=== PATIENT | male | born 1965 | race Caucasian/White ===

== ENCOUNTER 2018-03-01 11:10 | Emergency (ER) | payer OTHER ==
[~2018-03-01] VITALS: Ht 175.3 cm; Wt 108.9 kg
[2018-03-01 11:45] LABS: ABSOLUTE BASOPHIL COUNT 0 /CUMM (0.0-0.2); ABSOLUTE EOSINOPHIL COUNT 0.1 /CUMM (0.0-0.7); ABSOLUTE GRANULOCYTE CT 2.8 /CUMM (1.4-6.5); ABSOLUTE LYMPH COUNT 2.3 /CUMM (1.2-3.4); ABSOLUTE MONOCYTE COUNT 0.6 /CUMM (0.10-0.60); BASOPHIL % 0.8 % (0.0-2.0); EOSINOPHIL % 1.5 % (0-5); GRANULOCYTE % 48.2 % (42.2-75.2); HEMATOCRIT 43.5 % (42-52); MEAN CORPUSCULAR HGB 34.7 PG (27.0-31.0); MEAN CORPUSCULAR HGB CONC 35.1 G/DL (33.0-37.0); MEAN CORPUSCULAR VOLUME 99.1 FL (80.0-94.0); MEAN PLATELET VOLUME 10.3 FL (7.4-10.4); RBC DISTRIBUTION WIDTH 15.9 % (11.5-14.5); RED BLOOD CELL CT 4.39 /CUMM (4.70-6.10); WHITE BLOOD CELL COUNT 5.9 /CUMM (4.8-10.8)
--- NOTE | 2018-03-01 12:10 | ED GENERAL ADULT ---
History of Present Illness General Chief Complaint: ETOH/Drug Related Complaint Stated Complaint: PT IS HERE FOR DETOX Source: patient Exam Limitations: no limitations Vital Signs & Intake/Output Vital Signs & Intake/Output Vital Signs Date Time Temp Pulse Resp B/P B/P Pulse O2 O2 Flow FiO2 Mean Ox Delivery Rate 03/02 0738 98.3 73 20 149/72 93 Room Air 03/02 0545 98.4 76 18 99/60 03/02 0542 98.4 76 18 99/60 98 Room Air 03/02 0253 163/91 03/02 0239 99.1 90 20 163/91 03/02 0239 99.1 90 20 163/91 96 Room Air Room Air 03/02 0000 98.8 75 20 150/86 03/01 2356 98.8 75 20 150/86 94 Room Air 03/01 2053 98.2 64 18 138/82 03/01 2053 138/82 03/01 2053 98.2 64 18 138/82 97 Room Air 03/01 1828 98.9 64 16 98/52 98 Room Air 03/01 1827 98.9 64 16 98/52 03/01 1716 97.9 66 18 120/55 99 Room Air 03/01 1715 97.9 66 18 120/55 03/01 1558 97.2 70 16 106/56 03/01 1556 97.2 70 18 106/56 97 Room Air 03/01 1412 97.8 65 20 112/65 03/01 1410 97.8 65 112/65 95 Room Air 03/01 1215 96.9 72 18 144/82 03/01 1113 96.9 72 18 144/82 97 Room Air ED Intake and Output 03/02 0000 03/01 1200 Intake Total Output Total Balance Patient 240 lb Weight Weight Reported by Patient Measurement Method Allergies Coded Allergies: No Known Allergies (03/01/18) Reconcile Medications Atenolol 50 MG TABLET 1 TAB PO DAILY HEART (Reported) Clonazepam 1 MG TABLET 1 TAB PO BIDP PRN ANXIETY (Reported) Escitalopram Oxalate (Lexapro) 20 MG TABLET 1 TAB PO DAILY MENTAL HEALTH ( Reported) Levocetirizine Dihydrochloride 5 MG TABLET 1 TAB PO DAILY ALLERGIES (Reported ) Levothyroxine Sodium 200 MCG TABLET 1 TAB PO DAILY AC THYROID (Reported) Lisinopril/Hydrochlorothiazide (Lisinopril-Hctz 20-12.5 MG Tab) 20 MG-12.5 MG TABLET 2 TAB PO DAILY HEART (Reported) Metformin HCl 850 MG TABLET 1 TAB PO BID DIABETES (Reported) Nicotine Polacrilex (Nicotine Lozenge) 4 MG LOZENGE 1 TAB PO DAILY NEEDED PRN SMOKING (Reported) Omeprazole 20 MG CAPSULE. 1 CAP PO DAILY GI (Reported) Pioglitazone HCl 30 MG TABLET 1 TAB PO DAILY DIABETES (Reported) Zolpidem Tartrate (Ambien) 10 MG TABLET 1 TAB PO QPM SLEEP (Reported) Triage Note: 52 Y/O MALE REQUESTING DETOX FROM ALCOHOL. HE HAS BEEN DRINKING 1L DAILY SINCE LAST DETOX 16 WEEKS AGO. WENT TO [place] YESTERDAY BUT WAS TOLD THEY DONT HAVE A DETOX UNIT PER PT STATEMENT. TODAY HAS CONSUMED APPROX 1/2 LITER PER PT. DENIES HX SEIZURES. ADMITS TO GETTING TREMULOUS BUT NO TREMORS NOTED AT PRESENT. ALSO C/O DIFFICULTY SLEEPING X 4 DAYS AND DECREASED APPETITE/PO INTAKE. DENIES SI/HI. CALM AND COOPERATIVE. Triage Nurses Notes Reviewed? yes Onset: Gradual Duration: week(s): Timing: recent history Injury Environment: home HPI: 52-year-old male with history of hypertension, diabetes presents emergency department requesting alcohol detox. Patient states that he has been drinking alcohol daily, he drinks over 1 L of alcohol per day. Patient had several drinks this morning. Patient has gone through detox in the past, last went through detox a few months ago. Patient states that when he goes alcohol withdrawal he has tremors however he denies history of seizures. Patient denies SI/HI, drug use, chest pain, abdominal pain. (Anne Huggins) Past History Travel History Traveled to [place] past 21 day No Medical History Any Pertinent Medical History? see below for history Neurological: NONE EENT: NONE Cardiovascular: hypertension Respiratory: NONE Gastrointestinal: NONE Hepatic: NONE Renal: NONE Musculoskeletal: NONE Psychiatric: NONE Endocrine: diabetes Surgical History Surgical History: non-contributory Psychosocial History What is your primary language Hungarian Tobacco Use: Current Daily Use Daily Tobacco Use Amount/Type: => 5 Cigarettes daily Family History Hx Contributory? No (Anne Huggins) Review of Systems Review of Systems Constitutional: Reports: no symptoms. EENTM: Reports: no symptoms. Respiratory: Reports: no symptoms. Cardiovascular: Reports: no symptoms. GI: Reports: no symptoms. Genitourinary: Reports: no symptoms. Musculoskeletal: Reports: no symptoms. Skin: Reports: no symptoms. Neurological/Psychological: Reports: see HPI. Hematologic/Endocrine: Reports: no symptoms. Immunologic/Allergic: Reports: no symptoms. All Other Systems: Reviewed and Negative (Amita BELLE,Anne Barnes) Physical Exam Physical Exam General Appearance: well developed/nourished, no apparent distress, alert, awake Head: atraumatic, normal appearance Eyes: Bilateral: normal appearance. Ears, Nose, Throat: hearing grossly normal Neck: normal inspection, supple, full range of motion Respiratory: normal breath sounds, no respiratory distress, lungs clear Cardiovascular: regular rate/rhythm Gastrointestinal: normal bowel sounds, soft, non-tender, no organomegaly Back: normal inspection, normal range of motion Extremities: normal inspection, normal range of motion Neurologic/Psych: awake, alert, oriented x 3 Skin: intact, normal color, warm/dry Core Measures ACS in differential dx? No CVA/TIA Diagnosis: No Sepsis Present: No Sepsis Focused Exam Completed? No (Amita BELLE,Anne Barnes) Progress Differential Diagnoses I considered the following diagnoses in my evaluation of the patient: [Alcohol detox, alcohol intoxication, drug abuse, electrolyte abnormality, dehydration, kidney disease] Plan of Care: Orders Procedure Date/time Status Regular Diet 03/01 D Active CIWA 03/01 1128 Active URINE DRUG SCREEN FOR ER ONLY 03/01 1128 Complete ETHANOL 03/01 1128 Complete COMPREHENSIVE METABOLIC PANEL 03/01 1128 Complete CBC WITHOUT DIFFERENTIAL 03/01 112 Complete Laboratory Tests 03/01/18 1141: Urine Opiates Screen < 100, Methadone Screen 57, Barbiturate Screen < 60, Ur Phencyclidine Scrn < 6.00, Amphetamines Screen 177, U Benzodiazepines Scrn 292 H, Urine Cocaine Screen < 50, Urine Cannabis Screen 34.80 03/01/18 1134: Anion Gap 14, Estimated GFR 53 L, BUN/Creatinine Ratio 17.1, Glucose 184 H, Calcium 9.7, Total Bilirubin 1.2, AST 143 H, ALT 127 H, Alkaline Phosphatase 103, Total Protein 7.2, Albumin 4.3, Globulin 2.9, Albumin/Globulin Ratio 1.5, CBC w Diff NO MAN DIFF REQ, RBC 4.39 L, MCV 99.1 H, MCH 34.7 H, MCHC 35.1, RDW 15.9 H, MPV 10.3, Gran % 48.2, Lymphocytes % 39.8, Monocytes % 9.7 H, Eosinophils % 1.5, Basophils % 0.8, Absolute Granulocytes 2.8, Absolute Lymphocytes 2.3, Absolute Monocytes 0.6, Absolute Eosinophils 0.1, Absolute Basophils 0, Serum Alcohol 298.0 Patient's labs show mildly abnormal kidney functions, patient has a history of diabetes and hypertension, no labs to compare these numbers to. These findings are likely related to dehydration from his alcoholism versus kidney disease relating to his chronic conditions. Patient in no acute distress, sleeping soundly and hallway. Alcohol level is almost 300. Patient's CIWA scores have been 0-2 for the duration of his stay thus far. The patient reports he is not interested in outpatient detox. We'll continue to monitor CIWA scores until the patient's alcohol level is 0. PAtient medicated with IV fluids for dehyration and hypotension. The patient was signed out to Dr. Guevara pending further CIWA protocol. Initial ED EKG: none Hand-Off Endorsed To: Samson Guevara MD Endorsed Time: 1999 Pending: other (CIWA) (Anne Huggins) Hand-Off Endorsed To: Aristeo Rush DO Endorsed Time: 07 Pending: CT ([facility]) (Samson Guevara MD) Comments: At the time of my assumption of care this morning the patient was awaiting transport to [facility] for detox. However, he stated he did not wish to go there anymore and requested to see the physician. I evaluated the patient, and he asked if he could be admitted to [facility] for detox. I told him we do not have detox here, only at [facility], and he is not in ETOH withdrawal so does not qualify for admission. (Aristeo Rush DO) Departure Departure Condition: Stable Clinical Impression Primary Impression: Alcohol abuse Referrals: Benitez ORTIZ,Carrington (PCP/Family) Departure Forms: Customer Survey General Discharge Information (Anne Huggins) PA/DEPUTY MANAGER Co-Sign Statement Statement: ED Attending supervision documentation- x I saw and evaluated the patient. I have also reviewed all the pertinent lab results and diagnostic results. I agree with the findings and the plan of care as documented in the PA's/DEPUTY MANAGER's documentation. [] I have reviewed the ED Record and agree with the PA's/DEPUTY MANAGER's documentation. [] Additions or exceptions (if any) to the PAs/DEPUTY MANAGER's note and plan are summarized below: [] (Samson Guevara MD) Departure Time of Disposition: 933 Disposition: HOME OR SELF CARE Additional Instructions: Please follow-up with your primary physician if you wish to look into detox further. (Aristeo Rush DO) Critical Care Note Critical Care Note Critical Care Time: non-applicable (Anne Huggins) Condition: Stable Clinical Impression Primary Impression: Alcohol abuse Referrals: Benitez ROTIZ,Carrington (PCP/Family) Departure Forms: Customer Survey General Discharge Information (Anne Huggins) PA/DEPUTY MANAGER Co-Sign Statement Statement: ED Attending supervision documentation- x I saw and evaluated the patient. I have also reviewed all the pertinent lab results and diagnostic results. I agree with the findings and the plan of care as documented in the PA's/DEPUTY MANAGER's documentation. [] I have reviewed the ED Record and agree with the PA's/DEPUTY MANAGER's documentation. [] Additions or exceptions (if any) to the PAs/DEPUTY MANAGER's note and plan are summarized below: [] (Samson Guevara MD) Critical Care Note Critical Care Note Critical Care Time: non-applicable (Anne Huggins)
[2018-03-01] MEDS ORDERED: LEVOCETIRIZINE D5 M1 PO (12:13)
[2018-03-01] MEDS ORDERED: LEVOTHYROXINE200 MC1 PO (12:14)
[2018-03-01] MEDS ORDERED: PIOGLITAZONE HC30 M1 PO (12:15)
[2018-03-01] MEDS ORDERED: ATENOLOL50 M1 PO (12:15)
[2018-03-01] MEDS ORDERED: OMEPRAZOLE20 M2 PO (12:15)
[2018-03-01] MEDS ORDERED: NICOTINE LOZENGE4 MG PO (12:15)
[2018-03-01] MEDS ORDERED: AMBIEN10 M1 PO (12:16)
[2018-03-01] MEDS ORDERED: METFORMIN HCL850 M1 PO (12:16)
[2018-03-01 12:17] LABS: PLATELET COUNT 99 /CUMM (130-400)
[2018-03-01] MEDS ORDERED: CLONAZEPAM1 M2 PO (12:17)
[2018-03-01] MEDS ORDERED: LISINOPRIL-HCT1 EACH PO (12:17)
[2018-03-01] MEDS ORDERED: LEXAPRO20 M1 PO (12:18)
[2018-03-02 07:38] VITALS: BP 149/72
== END 2018-03-02 09:24 ==
LOC: ERH 11:10
PROVIDERS: Physician Assistant
DX: F10.10 Alcohol abuse, uncomplicated (principal); I10 Essential (primary) hypertension; F17.210 Nicotine dependence, cigarettes, uncomplicated; E11.9 Type 2 diabetes mellitus without complications; Z79.84 Long term (current) use of oral hypoglycemic drugs
CPT/HCPCS: 80307; 96374; G0480; J2405